=== PATIENT | female | born 1990 | race Caucasian/White ===

== ENCOUNTER 2017-04-21 21:45 | Emergency (ER) | payer BC ==
[~2017-04-21] VITALS: Ht 154.9 cm; Wt 63.0 kg
[2017-04-21 22:15] VITALS: BP 99/62
== END 2017-04-22 | disposition left against medical advice (07) ==
LOC: ER 21:45
DX: R09.81 Nasal congestion (principal); Z53.21 Procedure and treatment not carried out due to patient leaving prior to being seen by health care provider